=== PATIENT | female | born 1990 | race Caucasian/White ===

== ENCOUNTER 2023-10-19 11:15 | Inpatient (IN) | payer OTHER ==
[2023-10-19] MEDS ORDERED: BUTORPHANOL TARTRATE 1 MG/ML VIAL IVPB ONE (12:14)
[2023-10-19] MEDS: ELECTROLYTE-148 SOLN 1,000 ML IV SCH (12:20)
[2023-10-19] MEDS ORDERED: AMPICILLIN SODIUM 2 GM VIAL ONE (12:22)
[2023-10-19 12:28] VITALS: BMI 22.6
[2023-10-19] MEDS: AMPICILLIN - 2 GM in SODIUM CHLORIDE 100 ML IVPB ONE (12:30)
[2023-10-19 13:18] LABS: BASO % 0.5 % (0-2.0); EOS % 1.2 % (0-4.5); HEMATOCRIT 35.8 % (32.4-45.2); HEMOGLOBIN 12.3 GM/dL (10.7-15.3); LYMPH % 16.7 % (8-40); MCH 32.9 pg (25.7-33.7); MCHC 34.4 g/dl (32.0-36.0); MEAN CELL VOLUME 95.5 fl (80-96); MEAN PLT VOLUME 8.7 fl (7.5-11.1); MONO % 7.7 % (3.8-10.2); NEUT % 73.9 % (42.8-82.8); PLATELET COUNT 242 10^3/uL (134-434); RBC 3.74 M/mm3 (3.60-5.2); WHITE BLOOD COUNT 12.2 K/mm3 (4.0-10.0)
[2023-10-19 13:23] LABS: INR 0.93 (0.83-1.09); PROTHROMBIN TIME (PATIENT) 10.8 SEC (9.7-13.0)
[2023-10-19 13:26] LABS: ACTIVATED PTT 26.5 SECONDS (25.2-36.5)
[2023-10-19] MEDS ORDERED: OXYTOCIN 30 UNITS in 0.9% NS 30 UNIT/500 ML INFUS.BAG IVPB ONE (13:30)
[2023-10-19] MEDS: OXYTOCIN 30 UNITS in 0.9% NS 30 UNIT/500 ML INFUS.BAG IVPB SCH (13:35)
[2023-10-19 13:45] LABS: POTASSIUM 3.9 mmol/L (3.5-5.1)
[2023-10-19 13:47] LABS: BLOOD UREA NITROGEN 8.9 mg/dL (7-18); CALCIUM 7.9 mg/dL (8.5-10.1)
[2023-10-19 13:49] LABS: CREATININE 0.5 mg/dL (0.55-1.3)
[2023-10-19] MEDS ORDERED: OXYTOCIN 20 UNITS in 0.9% NS 20 UNIT/1,000 ML INFUS.BAG IV ONE (15:18)
[2023-10-19] MEDS ORDERED: LIDOCAINE HCL 1% PRESERVATIVE FREE - 30ML VIAL ONE (15:38)
[2023-10-19] MEDS ORDERED: WITCH HAZEL 50% (TUCKS) 40 PAD/JAR PAD TP PRN (16:01)
[2023-10-19] MEDS ORDERED: METHYLERGONOVINE MALEATE 0.2 MG/1 ML AMP IM PRN (16:01)
[2023-10-19] MEDS ORDERED: BISACODYL 10 MG SUPP.RECT RC PRN (16:01)
[2023-10-19] MEDS ORDERED: BENZOCAINE 28 GM HEMORRHOIDAL OINTMENT TP PRN (16:01)
[2023-10-19] MEDS ORDERED: ACETAMINOPHEN 325 MG TABLET (FP) PO PRN (16:01)
[2023-10-19] MEDS: OXYTOCIN 20 UNITS in 0.9% NS 20 UNIT/1,000 ML INFUS.BAG IV SCH (16:24)
[2023-10-19 16:28] LABS: CORD BASE EXCESS -1.7 mmol/L (0-2); CORD BASE EXCESS -5.5 mmol/L (0-2); CORD HCO3 21.8 mmHg (20-29); CORD HCO3 22.8 mmHg (20-29); CORD PCO2 38.1 mmHg (30-78); CORD PCO2 48.9 mmHg (30-78); CORD pH 7.267 (7.14-7.44); CORD pH 7.395 (7.14-7.44)
[2023-10-19] MEDS ORDERED: AMPICILLIN - 1 GM in SODIUM CHLORIDE 100 ML IVPB SCH (16:30)
[2023-10-19] MEDS: BENZOCAINE 20% 57 GM BOTTLE TP PRN (17:59)
[2023-10-19] MEDS: IBUPROFEN 600 MG TABLET (FP) PO PRN (18:00)
[2023-10-19 22:22] VITALS: RESP 18
[2023-10-19] MEDS: PROMETHAZINE HCL 25 MG/1 ML VIAL IVPB ONE (22:45)
[2023-10-20 07:56] LABS: BASO % 0.5 % (0-2.0); EOS % 1.1 % (0-4.5); HEMATOCRIT 35.8 % (32.4-45.2); HEMOGLOBIN 12.1 GM/dL (10.7-15.3); LYMPH % 20.9 % (8-40); MCH 32.1 pg (25.7-33.7); MCHC 33.7 g/dl (32.0-36.0); MEAN CELL VOLUME 95.3 fl (80-96); MEAN PLT VOLUME 9.3 fl (7.5-11.1); MONO % 6.9 % (3.8-10.2); NEUT % 70.6 % (42.8-82.8); PLATELET COUNT 240 10^3/uL (134-434); RBC 3.76 M/mm3 (3.60-5.2); RDW 12.9 % (11.6-15.6); WHITE BLOOD COUNT 14.3 K/mm3 (4.0-10.0)
[2023-10-20] MEDS ORDERED: SENNOSIDES/DOCUSATE COMBO (SENNA PLUS) TABLET (UD) PO PRN (22:00)
[2023-10-21 11:01] VITALS: BP 112/75; PULSE 108; TEMP 97.8
[2023-10-30 13:17] LABS: POC NITRAZINE POS
== END 2023-10-21 10:30 | disposition home or self-care (01) | DRG 560 ==
LOC: JDEL 11:15 → JLDR 12:05 → J3W 17:45
PROVIDERS: ADMIT Obstetrics & Gynecology; ATTEND Obstetrics & Gynecology
PROC: 10E0XZZ Delivery of Products of Conception, External Approach (ICD-10-PCS; principal; 2023-10-19)
PROC: 0HQ9XZZ Repair Perineum Skin, External Approach (ICD-10-PCS; 2023-10-19)
PROC: 0UQMXZZ Repair Vulva, External Approach (ICD-10-PCS; 2023-10-19)
DX: O70.0 First degree perineal laceration during delivery (principal); O42.02 Full-term premature rupture of membranes, onset of labor within 24 hours of rupture; O99.824 Streptococcus B carrier state complicating childbirth; Z3A.38 38 weeks gestation of pregnancy; Z37.0 Single live birth
CPT/HCPCS: 36415; 36600; 80048; 82803; 83986-QW; 85025; 85610; 85730; 86780; 86850; 86900; 86901